=== PATIENT | male | born 1985 | race Caucasian/White ===

== ENCOUNTER 2019-02-22 20:06 | Emergency (ER) | payer OTHER ==
[~2019-02-22] VITALS: Ht 180.3 cm; Wt 108.9 kg
[~2019-02-22 20:06] MED LIST: COZAAR100 MG; KETO10TA2 PO; NORFLEX100MG PO
== END 2019-02-22 21:38 | disposition home or self-care (01) ==
LOC: ER 20:06
DX: M54.89 Other dorsalgia (principal)

== ENCOUNTER → 2019-02-26 | Emergency (ER) | payer OTHER ==
[~2019-02-26] VITALS: Ht 177.8 cm; Wt 108.9 kg
== END | disposition home or self-care (01) ==
LOC: ER 07:57
DX: K52.9 Noninfective gastroenteritis and colitis, unspecified (principal)

== ENCOUNTER 2019-07-25 08:14 | Emergency (ER) | payer OTHER ==
[~2019-07-25] VITALS: Ht 180.3 cm; Wt 108.9 kg
== END 2019-07-25 10:36 | disposition home or self-care (01) ==
LOC: ER 08:14
DX: B00.2 Herpesviral gingivostomatitis and pharyngotonsillitis (principal)